=== PATIENT | male | born 1965 | race African-American/Black ===

== ENCOUNTER 2017-04-06 09:13 | Emergency (ER) | payer SELFPAY ==
[~2017-04-06] VITALS: Ht 182.9 cm; Wt 110.0 kg
[~2017-04-06 09:13] MED LIST: DICY1TAB26 PO; GLIP5 PO; LISI-363 PO; METF-324 PO; OMEP20CA5 PO; ZOFR4TAB3 SL
[2017-04-06 09:23] VITALS: BP 179/90; PULSE 80; RESP 16; TEMP 97.7; O2SAT 100
[2017-04-06] MEDS ORDERED: GLIP5TAB8 PO ×2 (10:51→13:36)
[2017-04-06] MEDS ORDERED: METF1000 PO ×2 (10:51→13:36)
[2017-04-06] MEDS ORDERED: SODIUM CHLOR 0.9% 1000 ML INJ 1,000 ML IV SCH (10:53)
--- NOTE | 2017-04-06 10:58 | PD ---
HPI Chief Complaint: Dizziness Time Seen by Provider: 10:53 Travel History International Travel<30 days: No Contact w/Intl Traveler<30days: No Traveled to known affect area: No History of Present Illness HPI Patient is a 51-year-old male diabetic presents emergency department for evaluation of dizziness and fatigue. Patient states he's currently morning the loss was father who yesterday she's not been feeling well. He is noticed that her sugar is elevated in the 300s today and caused him to come in. He takes metformin. States that his sugars usually fairly well-controlled. Denies any chest pain nausea shortness breath abdominal pain diarrhea or vomiting. He does endorse some mild nausea. PFSH Past Medical History Cardiovascular Problems: Yes (htn but off medicaiton) Diabetes: Yes (type 2) Patient Takes Glucophage: Yes Gastrointestinal Disorders: Yes (ulcer) Hypertension: Yes (currently not taking any meds) Ulcer: Yes Tetanus Vaccination: < 5 Years Influenza Vaccination: No Past Surgical History Other Surgery: Yes (right leg plate in place r/t injury) Social History Alcohol Use: Yes (ocassional, beer) Tobacco Use: No Substance Use: No Allergies-Medications (Allergen,Severity, Reaction): Coded Allergies: No Known Allergies (Unverified , 04/06/17) Reported Meds & Prescriptions Reported Meds & Active Scripts Active Lisinopril 20 Mg Tab 20 Mg PO DAILY Glipizide 5 Mg Tab 5 Mg PO DAILY Take 30 minutes before a meal Metformin (Metformin HCl) 1,000 Mg Tab 1,000 Mg PO BIDPC With meals Reported Glipizide 5 Mg Tab 5 Mg PO BIDAC Take 30 minutes before a meal Review of Systems Except as stated in HPI: all other systems reviewed are Neg Physical Exam Narrative GENERAL: Well-developed well-nourished, overweight but in no obvious distress. SKIN: Focused skin assessment warm/dry. No rash no wound HEAD: Atraumatic. Normocephalic. EYES: Pupils equal and round. No scleral icterus. No injection or drainage. ENT: No nasal bleeding or discharge. Mucous membranes pink and moist. NECK: Trachea midline. No JVD. CARDIOVASCULAR: Regular rate and rhythm. No murmur appreciated. 2+ but equal pulses in all 4 extremities. RESPIRATORY: No accessory muscle use. Clear to auscultation. Breath sounds equal bilaterally. GASTROINTESTINAL: Abdomen soft, non-tender, nondistended. Hepatic and splenic margins not palpable. MUSCULOSKELETAL: No obvious deformities. No clubbing. No cyanosis. No edema. NEUROLOGICAL: Awake and alert. No obvious cranial nerve deficits. Motor grossly within normal limits. Normal speech. PSYCHIATRIC: Appropriate mood and affect; insight and judgment normal. Data Data Last Documented VS Vital Signs Date Time Temp Pulse Resp B/P (MAP) Pulse Ox O2 Delivery O2 Flow Rate FiO2 04/06/17 14:16 82 16 141/91 (108) 98 04/06/17 12:58 Room Air 04/06/17 09:23 97.7 Orders Orders Basic Metabolic Panel (Bmp) (04/06/17 10:53) Complete Blood Count With Diff (04/06/17 10:53) Iv Access Insert/Monitor (04/06/17 10:53) Ecg Monitoring (04/06/17 10:53) Oximetry (04/06/17 10:53) Sodium Chlor 0.9% 1000 Ml Inj (Ns 1000 M (04/06/17 10:53) Sodium Chloride 0.9% Flush (Ns Flush) (04/06/17 11:00) Electrocardiogram (04/06/17 10:53) Insulin Human Regular Inj (Novolin R Inj (04/06/17 11:00) Insulin Human Regular Inj (Novolin R Inj (04/06/17 12:15) Labs Laboratory Tests Test 04/06/17 11:35 White Blood Count 9.3 TH/MM3 Red Blood Count 4.13 MIL/MM3 Hemoglobin 11.8 GM/DL Hematocrit 33.6 % Mean Corpuscular Volume 81.5 FL Mean Corpuscular Hemoglobin 28.6 PG Mean Corpuscular Hemoglobin Concent 35.2 % Red Cell Distribution Width 12.1 % Platelet Count 237 TH/MM3 Mean Platelet Volume 9.4 FL Neutrophils (%) (Auto) 66.8 % Lymphocytes (%) (Auto) 25.1 % Monocytes (%) (Auto) 5.3 % Eosinophils (%) (Auto) 2.3 % Basophils (%) (Auto) 0.5 % Neutrophils # (Auto) 6.3 TH/MM3 Lymphocytes # (Auto) 2.3 TH/MM3 Monocytes # (Auto) 0.5 TH/MM3 Eosinophils # (Auto) 0.2 TH/MM3 Basophils # (Auto) 0.0 TH/MM3 CBC Comment DIFF FINAL Differential Comment Blood Urea Nitrogen 20 MG/DL Creatinine 1.40 MG/DL Random Glucose 385 MG/DL Calcium Level 9.1 MG/DL Sodium Level 135 MEQ/L Potassium Level 5.0 MEQ/L Chloride Level 103 MEQ/L Carbon Dioxide Level 25.2 MEQ/L Anion Gap 7 MEQ/L Estimat Glomerular Filtration Rate 65 ML/MIN MDM Medical Decision Making Medical Screen Exam Complete: Yes Emergency Medical Condition: Yes Interpretation(s) EKG shows normal sinus rhythm with normal axis and early R-wave transition. Nonspecific T-wave abnormality consistent with early repolarization. There is T -wave inversion in lead 3 isolated finding. Is a borderline EKG. Comparison to 05/29/2015 shows no change. Differential Diagnosis Hyperglycemia, Fatigue, Anemia, Adjustment disorder. Narrative Course Appears well, NAD. NS and insulin given, sugar is better. No evidence of DKA nor any acute medical emergency. Medications refilled. Bloodwork reassuring, stable for dc to follow up with PCP. Diagnosis Primary Impression: Hyperglycemia due to type 2 diabetes mellitus Additional Impression: Fatigue Med/Other Pt SpecificInfo: Prescription(s) given Scripts Lisinopril (Lisinopril) 20 Mg Tab 20 MG PO DAILY, #30 TAB 0 Refills Prov: Nick Goodwin MD 04/06/17 Glipizide (Glipizide) 5 Mg Tab 5 MG PO DAILY for Blood Sugar Management, #30 TAB 0 Refills Take 30 minutes before a meal Prov: Nick Goodwin MD 04/06/17 Metformin (Metformin) 1,000 Mg Tab 1000 MG PO BIDPC for Blood Sugar Management, #60 TAB 0 Refills With meals Prov: Nick Goodwin MD 04/06/17 Disposition: 01 DISCHARGE HOME Condition: Stable Nick Goodwin MD Apr 06, 2017 10:58
[2017-04-06 11:00] VITALS: RESP 16; O2SAT 98
[2017-04-06] MEDS ORDERED: INSULIN HUMAN REGULAR 1,000 UNITS/10 ML VIAL IV PUSH ONE ×2 (11:00→12:15)
[2017-04-06 11:30] VITALS: BP 186/87; PULSE 84; RESP 16; O2SAT 99
[2017-04-06] MEDS: SODIUM CHLORIDE 0.9% FLUSH 10 ML FLUSH IV FLUSH PRN ×2 (11:41→13:11)
[2017-04-06 11:46] LABS: AUTOMATED NEUTROPHIL # 6.3 TH/MM3 (1.8-7.7); BASOPHIL % 0.5 % (0.0-2.0); EOSINOPHIL # 0.2 TH/MM3 (0-0.4); EOSINOPHIL % 2.3 % (0.0-4.0); HEMATOCRIT 33.6 % (39.0-51.0); HEMO FLAGS DIFF FINAL; LYMPH % 25.1 % (9.0-44.0); LYMPHOCYTE # 2.3 TH/MM3 (1.0-4.8); MEAN CELL VOLUME 81.5 FL (80.0-100.0); MEAN CORPUSCULAR HEMOGLOBIN 28.6 PG (27.0-34.0); MEAN CORPUSCULAR HGB CONC 35.2 % (32.0-36.0); MONO % 5.3 % (0.0-8.0); NEUT % 66.8 % (16.0-70.0); PLATELET COUNT 237 TH/MM3 (150-450); RED BLOOD COUNT 4.13 MIL/MM3 (4.50-5.90); RED CELL DISTRIBUTION WIDTH 12.1 % (11.6-17.2); WHITE BLOOD COUNT 9.3 TH/MM3 (4.0-11.0)
[2017-04-06 11:57] LABS: BICARBONATE 25.2 MEQ/L (21.0-32.0)
[2017-04-06 12:21] VITALS: BP 160/98; PULSE 80; RESP 16
[2017-04-06 12:58] VITALS: BP 164/98; PULSE 85; RESP 16; O2SAT 99
[2017-04-06] MEDS ORDERED: LISI-515 PO (13:36)
[2017-04-06 14:16] VITALS: BP 141/91
--- NOTE | 2017-04-07 15:08 | EKG ---
Date Performed: 04/06/2017 Time Performed: 11:00:19 PTAGE: 51 years EKG: Sinus rhythm WITH SHORT IA INTERVAL NONSPECIFIC T-WAVE ABNORMALITY BORDERLINE ECG Compared to PREVIOUS TRACING , there continues to be slight ST elevation in leads aVL and leads V2 an d V3. These may be changes of early repolarization. There is no evolutionary change since 05/29/2015 and these EKGs are essentially the same. PREVIOUS TRACIN05/29/2015 09.07 DOCTOR: Xavi Nuñez Interpretating Date/Time 04/07/2017 15:07:00
== END 2017-04-06 14:17 | disposition home or self-care (01) ==
LOC: PHED 09:13
DX: E11.65 Type 2 diabetes mellitus with hyperglycemia (principal); Z79.84 Long term (current) use of oral hypoglycemic drugs
CPT/HCPCS: 80048; 85025; 93005; 96361; 96374; 96376; 99284; J1815; J7030

== ENCOUNTER 2017-09-09 02:08 | Emergency (ER) | payer OTHER ==
[2017-09-09] MEDS ORDERED: CLINDAMYCIN INJ 900 MG in SODIUM CHLORIDE 0.9% INJ 100 ML IV (03:15)
[2017-09-09] MEDS ORDERED: SODIUM CHLORIDE 0.9% FLUSH 10 ML FLUSH IVF (03:15)
[2017-09-09] MEDS: CLINDAMYCIN 900 MG/NS PREMIX 50 ML IV (03:36)
[2017-09-09] MEDS: cloNIDine HCL 0.1 MG TAB PO (03:36)
[2017-09-09] MEDS: KETOROLAC TROMETHAMINE 30 MG/ML (IVP) VIAL IV PUSH (03:36)
[2017-09-09 03:55] LABS: AUTOMATED NEUTROPHIL # 5.4 TH/MM3 (1.8-7.7); BASOPHIL % 0.4 % (0.0-2.0); EOSINOPHIL # 0.2 TH/MM3 (0-0.4); EOSINOPHIL % 2.8 % (0.0-4.0); HEMATOCRIT 34.1 % (39.0-51.0); HEMOGLOBIN 11.1 GM/DL (13.0-17.0); LYMPH % 21.6 % (9.0-44.0); LYMPHOCYTE # 1.7 TH/MM3 (1.0-4.8); MEAN CELL VOLUME 82.8 FL (80.0-100.0); MEAN CORPUSCULAR HGB CONC 32.6 % (32.0-36.0); MEAN PLATELET VOLUME 9.3 FL (7.0-11.0); MONO % 9.3 % (0.0-8.0); MONOCYTE # 0.8 TH/MM3 (0-0.9); NEUT % 65.9 % (16.0-70.0); PLATELET COUNT 293 TH/MM3 (150-450); RED BLOOD COUNT 4.12 MIL/MM3 (4.50-5.90); RED CELL DISTRIBUTION WIDTH 12.2 % (11.6-17.2); WHITE BLOOD COUNT 8.1 TH/MM3 (4.0-11.0)
[2017-09-09 04:11] LABS: HEMO FLAGS DIFF FINAL
[2017-09-09 04:12] LABS: CHLORIDE 96 MEQ/L (98-107); POTASSIUM 3.8 MEQ/L (3.5-5.1); SODIUM (NA) 133 MEQ/L (136-145)
[2017-09-09 04:15] LABS: CALCIUM 8.8 MG/DL (8.5-10.1)
[2017-09-09 04:16] LABS: ANION GAP 6 MEQ/L (5-15); BICARBONATE 30.9 MEQ/L (21.0-32.0); BLOOD UREA NITROGEN 13 MG/DL (7-18); GLUCOSE,RANDOM 329 MG/DL (74-106)
[2017-09-09 04:19] LABS: GLOMERULAR FILTRATION RATE 60 ML/MIN (>89)
== END 2017-09-09 06:08 | disposition home or self-care (01) ==
LOC: PHED 02:08
DX: E11.65 Type 2 diabetes mellitus with hyperglycemia (principal); K04.7 Periapical abscess without sinus; I10 Essential (primary) hypertension; Z91.14 Patient's other noncompliance with medication regimen; Z79.84 Long term (current) use of oral hypoglycemic drugs; Z79.899 Other long term (current) drug therapy
CPT/HCPCS: 71045; 80048; 85025; 87040; 87804; 87804-59; 96361; 96374; 99284-25

== ENCOUNTER 2017-11-12 15:07 | Emergency (ER) | payer OTHER ==
[~2017-11-12] VITALS: Ht 182.9 cm; Wt 109.0 kg
[~2017-11-12 15:07] MED LIST changes: +CLON0.1T PO; -DICY1TAB26 PO; +GABA800T PO; -GLIP5 PO; +GLIP5TAB8 PO; -LISI-363 PO; +LISI-515 PO; -METF-324 PO; +METF1000 PO; -OMEP20CA5 PO; +PENI500T PO
[2017-11-12 15:12] VITALS: BP 211/116; PULSE 80; RESP 16; TEMP 97.7; O2SAT 99
[2017-11-12 15:20] VITALS: O2SAT 99
--- NOTE | 2017-11-12 15:43 | PD ---
HPI Chief Complaint: Abdominal Pain Time Seen by Provider: 15:28 Travel History International Travel<30 days: No Contact w/Intl Traveler<30days: No Traveled to known affect area: No History of Present Illness HPI 52 y/o male presents with diffuse abdominal pain and nonbloody emesis over the past couple days. He denies any other concurrent concerns. He notes last time he had this it was ulcers. He denies modifying factors. Quality is nonbloody. Severity is multiple episodes. He denies migration the pain. Location is diffuse. PFSH Past Medical History Cardiovascular Problems: Yes (htn on meds) Diabetes: Yes (type 2) Diminished Hearing: No Gastrointestinal Disorders: Yes (ulcer) Hypertension: Yes (currently not taking any meds) Ulcer: Yes Past Surgical History Other Surgery: Yes (right leg plate in place r/t injury) Social History Alcohol Use: Yes (ocassional, beer) Tobacco Use: No Substance Use: No Allergies-Medications (Allergen,Severity, Reaction): Coded Allergies: No Known Allergies (Unverified Allergy, Unknown, 11/12/17) Reported Meds & Prescriptions Reported Meds & Active Scripts Active Zofran Odt (Ondansetron Odt) 4 Mg Tab 4 Mg SL Q6HR PRN Clonidine (Clonidine HCl) 0.1 Mg Tab 0.1 Mg PO Q12HR PRN Lisinopril 20 Mg Tab 20 Mg PO DAILY Metformin (Metformin HCl) 1,000 Mg Tab 1,000 Mg PO BIDPC With meals Reported Gabapentin 800 Mg Tab 800 Mg PO TID Glipizide 5 Mg Tab 5 Mg PO BIDAC Take 30 minutes before a meal Review of Systems Except as stated in HPI: all other systems reviewed are Neg Physical Exam Narrative GENERAL: 52-year-old male who at end of exam is actively vomiting SKIN: Focused skin assessment warm/dry. HEAD: Atraumatic. Normocephalic. EYES: Pupils equal and round. No scleral icterus. No injection or drainage. ENT: No nasal bleeding or discharge. Mucous membranes pink and moist. NECK: Trachea midline. CARDIOVASCULAR: Regular rate and rhythm. RESPIRATORY: No accessory muscle use. Clear to auscultation. Breath sounds equal bilaterally. GASTROINTESTINAL: Abdomen soft, mildly tender diffusely, nondistended. No rebound MUSCULOSKELETAL: No obvious deformities. No clubbing. No cyanosis. NEUROLOGICAL: Awake and alert. Moves all extremities. Normal speech. PSYCHIATRIC: Appropriate mood and affect; insight and judgment normal. Data Data Last Documented VS Vital Signs Date Time Temp Pulse Resp B/P (MAP) Pulse Ox O2 Delivery O2 Flow Rate FiO2 11/12/17 20:10 11/12/17 18:45 90 20 98 Room Air 11/12/17 15:12 97.7 Orders Orders Complete Blood Count With Diff (11/12/17 15:28) Comprehensive Metabolic Panel (11/12/17 15:28) Urinalysis - C+S If Indicated (11/12/17 15:28) Lipase (11/12/17 15:28) Iv Access Insert/Monitor (11/12/17 15:28) Oximetry (11/12/17 15:28) Ondansetron Inj (Zofran Inj) (11/12/17 15:45) Sodium Chlorid 0.9% 500 Ml Inj (Ns 500 M (11/12/17 15:45) Ct Abd/Pel W Iv Contrast(Rout) (11/12/17 ) Sodium Chlor 0.9% 1000 Ml Inj (Ns 1000 M (11/12/17 17:30) Iohexol 350 Inj (Omnipaque 350 Inj) (11/12/17 17:55) Blood Glucose (11/12/17 18:05) Oral Rehydration (11/12/17 18:04) Insulin Aspart Inj (Novolog Inj) (11/12/17 18:15) Ed Discharge Order (11/12/17 18:34) Labs Laboratory Tests Test 11/12/17 15:15 11/12/17 15:30 11/12/17 16:50 Urine Collection Type CLEAN CATCH Urine Color YELLOW Urine Turbidity CLEAR Urine pH 6.5 Urine Specific [place] 1.015 Urine Protein 300 OR GREATER mg/dL Urine Glucose (UA) 1000 OR GREATER mg/dL Urine Ketones 15 mg/dL Urine Occult Blood MOD Urine Nitrite NEG Urine Bilirubin NEG Urine Urobilinogen 0.2 MG/DL Urine Leukocyte Esterase NEG Urine RBC 10-14 /hpf Urine Squamous Epithelial Cells 0-5 /hpf Microscopic Urinalysis Comment CULT NOT INDICATED Urine Collection Time 15:15 White Blood Count 12.5 TH/MM3 Red Blood Count 4.45 MIL/MM3 Hemoglobin 12.3 GM/DL Hematocrit 36.4 % Mean Corpuscular Volume 81.7 FL Mean Corpuscular Hemoglobin 27.6 PG Mean Corpuscular Hemoglobin Concent 33.8 % Red Cell Distribution Width 13.9 % Platelet Count 328 TH/MM3 Mean Platelet Volume 9.9 FL Neutrophils (%) (Auto) 86.8 % Lymphocytes (%) (Auto) 8.0 % Monocytes (%) (Auto) 2.3 % Eosinophils (%) (Auto) 0.0 % Basophils (%) (Auto) 2.9 % Neutrophils # (Auto) 10.8 TH/MM3 Lymphocytes # (Auto) 1.0 TH/MM3 Monocytes # (Auto) 0.3 TH/MM3 Eosinophils # (Auto) 0.0 TH/MM3 Basophils # (Auto) 0.4 TH/MM3 CBC Comment DIFF FINAL Differential Comment Blood Urea Nitrogen 23 MG/DL Creatinine 1.70 MG/DL Random Glucose 428 MG/DL Total Protein 8.5 GM/DL Albumin 3.4 GM/DL Calcium Level 9.9 MG/DL Alkaline Phosphatase 192 U/L Aspartate Amino Transf (AST/SGOT) 14 U/L Alanine Aminotransferase (ALT/SGPT) 27 U/L Total Bilirubin 0.2 MG/DL Sodium Level 138 MEQ/L Potassium Level 4.1 MEQ/L Chloride Level 102 MEQ/L Carbon Dioxide Level 28.3 MEQ/L Anion Gap 8 MEQ/L Estimat Glomerular Filtration Rate 52 ML/MIN Lipase 219 U/L MDM Medical Decision Making Medical Screen Exam Complete: Yes Emergency Medical Condition: Yes Medical Record Reviewed: Yes (past history confirm) Interpretation(s) CBC & BMP Diagram 11/12/17 15:30 11/12/17 16:50 Total Protein 8.5 H, Albumin 3.4, Calcium Level 9.9, Alkaline Phosphatase 192 H , Aspartate Amino Transf (AST/SGOT) 14 L, Alanine Aminotransferase (ALT/SGPT) 27 , Total Bilirubin 0.[address] abd pelvis no acute Differential Diagnosis Gastroenteritis, obstruction, DKA, pancreatitis, gastritis Narrative Course Will check blood work, urinalysis, CT scan abdominal pelvis and dose with IV fluids and Zofran and reevaluate ED workup reveals hyperglycemia in the 400s with normal bicarbonate. Patient also has mild increase in renal insufficiency from prior at 1.5 to today the creatinine of 1.7. He has had no additional vomiting after Zofran. CT without emergent process. Patient tolerating oral hydration and wanting to go home. Patient given 10 units of subcutaneous insulin here and will follow with primary closely for further glucose adjustment. Patient denies any new complaints and states that they are feeling better. Patient happy with care, all questions answered. Patient knows that follow up is incumbent on them and to return to the emergency room immediately if new or worsening symptoms develop. Patient given strict return precautions, vitals reviewed and are normal , agrees to further workup as an outpatient and understands the importance of it given he does not take insulin at home. Diagnosis Primary Impression: Vomiting Qualified Codes: R11.2 - Nausea with vomiting, unspecified Additional Impressions: Abdominal pain Qualified Codes: R10.10 - Upper abdominal pain, unspecified Hyperglycemia due to type 2 diabetes mellitus Qualified Codes: E11.65 - Type 2 diabetes mellitus with hyperglycemia Renal insufficiency Patient Instructions: General Instructions Additional Instructions: zofran and tylenol as needed, follow with primary tommorrow, return as needed Med/Other Pt SpecificInfo: Prescription(s) given Scripts Ondansetron Odt (Zofran Odt) 4 Mg Tab 4 MG SL Q6HR Y for Nausea/Vomiting, #10 TAB 0 Refills Prov: Kendy Ayers MD 11/12/17 Disposition: 01 DISCHARGE HOME Condition: Stable Kendy Ayers MD Nov 12, 2017 15:43
[2017-11-12] MEDS ORDERED: ONDANSETRON HCL 4 MG/2 ML VIAL IV PUSH ONE (15:45)
[2017-11-12] MEDS ORDERED: SODIUM CHLORID 0.9% 500 ML INJ 500 ML IV ONE (15:45)
[2017-11-12 15:59] LABS: AUTOMATED NEUTROPHIL # 10.8 TH/MM3 (1.8-7.7); BASOPHIL # 0.4 TH/MM3 (0-0.2); BASOPHIL % 2.9 % (0.0-2.0); HEMATOCRIT 36.4 % (39.0-51.0); HEMOGLOBIN 12.3 GM/DL (13.0-17.0); MEAN CELL VOLUME 81.7 FL (80.0-100.0); MEAN CORPUSCULAR HEMOGLOBIN 27.6 PG (27.0-34.0); MEAN CORPUSCULAR HGB CONC 33.8 % (32.0-36.0); MEAN PLATELET VOLUME 9.9 FL (7.0-11.0); MONO % 2.3 % (0.0-8.0); MONOCYTE # 0.3 TH/MM3 (0-0.9); NEUT % 86.8 % (16.0-70.0); PLATELET COUNT 328 TH/MM3 (150-450); RED BLOOD COUNT 4.45 MIL/MM3 (4.50-5.90); RED CELL DISTRIBUTION WIDTH 13.9 % (11.6-17.2); WHITE BLOOD COUNT 12.5 TH/MM3 (4.0-11.0)
[2017-11-12 16:10] LABS: BILIRUBIN, URINE NEG (NEG); BLOOD, URINE MOD (NEG); GLUCOSE,URINE 1000 OR GREATER mg/dL (NEG); KETONE, URINE 15 mg/dL (NEG); NITRITE,URINE NEG (NEG); PH, URINE 6.5 (5.0-8.5); URINE COLOR YELLOW (YELLW/STRAW); URINE LEUKOCYTE ESTERASE NEG (NEG)
[2017-11-12 16:16] LABS: SQUAMOUS EPITHELIAL CELL URINE 0-5 /hpf (0-5)
[2017-11-12 17:24] LABS: ALBUMIN 3.4 GM/DL (3.4-5.0); ALKALINE PHOSPHATASE 192 U/L (45-117); ALT (GPT) 27 U/L (12-78); AST (GOT) 14 U/L (15-37); BICARBONATE 28.3 MEQ/L (21.0-32.0); BLOOD UREA NITROGEN 23 MG/DL (7-18); CALCIUM 9.9 MG/DL (8.5-10.1); CHLORIDE 102 MEQ/L (98-107); GLOMERULAR FILTRATION RATE 52 ML/MIN (>89); GLUCOSE,RANDOM 428 MG/DL (74-106); SODIUM (NA) 138 MEQ/L (136-145); TOTAL BILIRUBIN ADULT 0.2 MG/DL (0.2-1.0); TOTAL PROTEIN 8.5 GM/DL (6.4-8.2)
[2017-11-12 17:30] VITALS: BP 201/95; PULSE 88; RESP 20; O2SAT 98
[2017-11-12] MEDS ORDERED: SODIUM CHLOR 0.9% 1000 ML INJ 1,000 ML IV ONE (17:30)
[2017-11-12] MEDS ORDERED: IOHEXOL 350 MG/ML 10 ML VIAL (for RAD DIAG) IVCONTRAST ONE (17:55)
--- NOTE | 2017-11-12 18:02 | RADRPT ---
EXAM DATE/TIME: 11/12/2017 17:43 [facility] COMPARISON: No previous studies available for comparison. INDICATIONS : Diffuse abdominal pain with nausea and vomiting. IV CONTRAST: 90 cc Omnipaque 350 (iohexol) IV ORAL CONTRAST: No oral contrast ingested. RADIATION DOSE: 20.07 CTDIvol (mGy) MEDICAL HISTORY : Hypertension. Diabetes. Ulcer. SURGICAL HISTORY : None. ENCOUNTER: Initial ACUITY: 1 day PAIN SCALE: 6/10 LOCATION: pelvis abdomen TECHNIQUE: Volumetric scanning of the abdomen and pelvis was performed. Using automated exposure control and ad justment of the mA and/or kV according to patient size, radiation dose was kept as low as reasonably achievable to obtain optimal diagnostic quality images. DICOM format image data is available electro nically for review and comparison. FINDINGS: Mild distal airway disease at the right lung base. No acute findings the liver, spleen, adrenals, kidneys or pancreas. There is no bowel obstruction. No free air or free fluid. No acute bony abnormalities. CONCLUSION: 1. No acute findings on abdomen and pelvic CT. No significant change from 2015. Vernon Zacarias MD on November 12, 2017 at 17:57 Board Certified Radiologist. This report was verified electronically.
[2017-11-12] MEDS ORDERED: ZOFR4TAB3 SL (18:13)
[2017-11-12] MEDS ORDERED: INSULIN ASPART 1,000 UNITS/10 ML VIAL SQ ONE (18:15)
[2017-11-12 18:45] VITALS: BP 205/95; PULSE 90; RESP 20; O2SAT 98
== END 2017-11-12 20:10 | disposition home or self-care (01) ==
LOC: PHED 15:07
DX: R11.2 Nausea with vomiting, unspecified (principal); R10.10 Upper abdominal pain, unspecified; N28.9 Disorder of kidney and ureter, unspecified; E11.65 Type 2 diabetes mellitus with hyperglycemia; I10 Essential (primary) hypertension
CPT/HCPCS: 74177; 80053; 81001; 83690; 85025; 96361; 96372; 96374; 99285; J1815; J2405; J7030; J7040; Q9967